=== PATIENT | male | born 1970 | race African-American/Black ===

== ENCOUNTER 2016-10-29 09:56 | Inpatient (IN) | payer OTHER ==
[2016-10-29 10:30] VITALS: BMI 29.8
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
[2016-10-29] MEDS ORDERED: chlordiazePOXIDE HCL 25 MG CAPSULE PO PRN (12:18)
[2016-10-29] MEDS ORDERED: MAGNESIUM CITRATE 300 ML BOTTLE PO PRN (12:18)
[2016-10-29] MEDS ORDERED: hydrOXYzine PAMOATE 25 MG CAPSULE (FP) PO PRN (12:18)
[2016-10-29] MEDS ORDERED: P-EPHED 60MG/TRIPROLIDI 2.5MG TABLET PO PRN (12:18)
[2016-10-29] MEDS ORDERED: MAG HYDROX/AL HYDROX/SIMETH 30 ML UNIT-DOSE CUP PO PRN (12:18)
[2016-10-29] MEDS ORDERED: guaiFENesin/D-METHORPHAN HB 10 ML UNIT-DOSE CUPS PO PRN (12:18)
[2016-10-29] MEDS ORDERED: LOPERAMIDE HCL 2 MG CAPSULE PO PRN (12:18)
[2016-10-29] MEDS ORDERED: MAGNESIUM HYDROX 2400MG/30ML ORAL SUSPENSION 30 ML CUP PO PRN (12:18)
[2016-10-29] MEDS ORDERED: MENTHOL/PHENOL 1 EACH UD MM PRN (12:18)
[2016-10-29] MEDS ORDERED: ACETAMINOPHEN 325 MG TABLET (FP) PO PRN (12:18)
[2016-10-29] MEDS ORDERED: diphenhydrAMINE HCL 50 MG CAPSULE PO PRN (12:18)
[2016-10-29] MEDS ORDERED: NICOTINE POLACRILEX 4 MG GUM BUC PRN (12:18)
[2016-10-29] MEDS ORDERED: NICOTINE 21 MG/24 HOURS TOPICAL PATCH TD SCH (12:30)
[2016-10-29] MEDS ORDERED: chlordiazePOXIDE HCL 25 MG CAPSULE PO ONE (12:40)
[2016-10-29] MEDS ORDERED: METHADONE HCL 10 MG TABLET (FOR DETOX USE ONLY) PO ONE ×2 (12:41→23:00)
[2016-10-29] MEDS ORDERED: chlordiazePOXIDE HCL 25 MG CAPSULE ONE (15:01)
[2016-10-29] MEDS ORDERED: METHADONE HCL 10 MG TABLET (FOR DETOX USE ONLY) ONE (15:02)
--- NOTE | 2016-10-29 15:28 | EKG ---
Test Reason : Blood Pressure : / mmHG Vent. Rate : 096 BPM Atrial Rate : 096 BPM P-R Int : 178 ms QRS Dur : 078 ms QT Int : 342 ms P-R-T Axes : 075 054 080 degrees QTc Int : 432 ms NORMAL SINUS RHYTHM POSSIBLE LEFT ATRIAL ENLARGEMENT ST ELEVATION, CONSIDER EARLY REPOLARIZATION, PERICARDITIS, OR INJURY ABNORMAL ECG WHEN COMPARED WITH ECG OF 06-APR-2012 01:55, NO SIGNIFICANT CHANGE WAS FOUND Confirmed by YAQUELIN ESTEBAN MD ([id number]) on 10/29/2016 3:27:56 PM Referred By: Heriberto Hidalgo Confirmed By:YAQUELIN ESTEBAN MD
[2016-10-29] MEDS: chlordiazePOXIDE HCL 25 MG CAPSULE PO SCH ×2 (17:16→22:25)
[2016-10-29] MEDS: IBUPROFEN 400 MG TABLET (FP) PO PRN (17:16)
[2016-10-29 20:06] LABS: URINE APPEARANCE CLEAR; URINE BILIRUBIN NEGATIVE (NEGATIVE); URINE BLOOD NEGATIVE (NEGATIVE); URINE COLOR YELLOW; URINE GLUCOSE (UA) NEGATIVE (NEGATIVE); URINE KETONE TRACE (NEGATIVE); URINE NITRITE NEGATIVE (NEGATIVE); URINE UROBILINOGEN 2.0 E.U/dl E.U./dl (0.2-1.0)
[2016-10-29 20:11] LABS: URINE LEUK ESTERASE 2+ (NEGATIVE); URINE PROTEIN 2+ (NEGATIVE)
[2016-10-29 20:14] LABS: URINE MUCUS RARE; URINE WBC 34 /hpf (3-5)
[2016-10-29] MEDS ORDERED: THIAMINE HCL 100 MG TABLET (FP) PO SCH (22:00)
[2016-10-30] MEDS: IBUPROFEN 400 MG TABLET (FP) PO PRN (03:28)
[2016-10-30] MEDS: chlordiazePOXIDE HCL 25 MG CAPSULE PO SCH (05:46)
[2016-10-30 06:26] VITALS: BP 105/71; PULSE 85; TEMP 98.6
--- NOTE | 2016-10-30 07:09 | PN ---
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
[2016-10-30] MEDS ORDERED: PRENATAL VITAMINS W/ FOLIC ACID TABLET (FP) PO SCH (10:00)
[2016-10-30] MEDS ORDERED: METHADONE HCL 10 MG TABLET (FOR DETOX USE ONLY) PO SCH (10:00)
[2016-10-30 10:01] LABS: MCH 27.4 pg (25.7-33.7); MCHC 31.5 g/dl (32.0-35.9); MEAN CELL VOLUME 86.9 fl (80-96); MEAN PLT VOLUME 9.5 fl (7.5-11.1); PLATELET COUNT 186 K/MM3 (134-434); RDW 14.6 % (11.9-15.9); WHITE BLOOD COUNT 10.6 K/mm3 (4.0-10.0)
[2016-10-30 10:51] LABS: BILIRUBIN,TOTAL 0.8 mg/dL (0.2-1.0); CALCIUM 10.1 mg/dL (8.5-10.1); CREATININE 1.6 mg/dL (0.7-1.3); TOT PROT 8.6 g/dl (6.4-8.2)
[2016-10-30] MEDS ORDERED: chlordiazePOXIDE HCL 25 MG CAPSULE PO SCH (17:00)
[2016-10-31] MEDS ORDERED: METHADONE HCL 5 MG TABLET (FOR DETOX USE ONLY) PO SCH (10:00)
[2016-10-31] MEDS ORDERED: chlordiazePOXIDE 5 MG CAPSULE PO SCH (17:00)
[2016-11-01] MEDS ORDERED: chlordiazePOXIDE HCL 10 MG CAPSULE PO SCH (17:00)
[2016-11-02] MEDS ORDERED: METHADONE HCL 10 MG TABLET (FOR DETOX USE ONLY) PO SCH (10:00)
[2016-11-03] MEDS ORDERED: METHADONE HCL 5 MG TABLET (FOR DETOX USE ONLY) PO SCH (06:00)
== END 2016-10-30 07:28 | disposition left against medical advice (07) | DRG 770 ==
LOC: YASAS 09:56 → Y3N 11:49 → Y6N 13:27
PROVIDERS: ADMIT Internal Medicine Addiction Medicine; ATTEND Internal Medicine Addiction Medicine
PROC: HZ2ZZZZ Detoxification Services for Substance Abuse Treatment (ICD-10-PCS; principal; 2016-10-30)
DX: F11.23 Opioid dependence with withdrawal (principal); F13.20 Sedative, hypnotic or anxiolytic dependence, uncomplicated; F10.230 Alcohol dependence with withdrawal, uncomplicated; F14.20 Cocaine dependence, uncomplicated; F12.20 Cannabis dependence, uncomplicated; F17.210 Nicotine dependence, cigarettes, uncomplicated; F43.10 Post-traumatic stress disorder, unspecified; Z90.5 Acquired absence of kidney
CPT/HCPCS: 36415; 80053; 81003; 81015; 85027; 86593; 93005; 93010